=== PATIENT | female | born 1995 | race Caucasian/White ===

== ENCOUNTER 2016-09-18 14:36 | Outpatient (CLI) | payer OTHER ==
--- NOTE | 2016-09-18 16:37 | DIAGNOSTIC IMAGING REPORT ---
PROCEDURE: US OB RE-EVALUATION INDICATION: Check dates and anatomy. Follow-up incomplete anatomic survey. TECHNIQUE: Ladd scale, color and spectral Doppler images of the gravid uterus. COMPARISON: Comparison is made to obstetric ultrasound studies on 07/17/2016 and on 05/01/2016 ([facility] 12/11/2016). FINDINGS: There is a viable intrauterine in cephalic position. Placenta is anterior and there is no evidence of previa. Amniotic fluid index is 16.6 cm (60th percentile). Normal cord Doppler ratios (3.0) and cervix length (3.0 cm). Completion of anatomic survey demonstrates fingers, diaphragm, and nose, lips, and facial structures (in extent visualized). The left kidney remains unidentified or atrophic. The right kidney is mildly prominent (4 cm) suggesting compensatory hypertrophy. bladder is present. BPD 7.6 cm 9-30.3 weeks), HC 27.8 cm (30.3 weeks), AC 24.3 cm (28.5 weeks), FL 5.4 cm (28.5 weeks). IMPRESSION: 1. Viable intrauterine with composite menstrual age of 29.3 weeks (plus or minus 2.5 weeks). [facility] based on today's study is 12/01/2016. When compared to prior studies ([facility] 12/11/2016), growth is advanced by approximate 10 days, but within normal limits. 2. Completion of anatomic survey now demonstrates normal structures that were not identified on prior study (fingers, diaphragm, nose and facial structures). 3. left kidney is still not identified on today's study, and there is evidence of compensatory hypertrophy of the right kidney. 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 4. In view the above changes early follow-up obstetric ultrasound in 4-6 weeks is recommended to evaluate growth and assess kidneys. 5. Findings discussed with Dr. Hoang.
== END 2016-09-18 23:00 ==
LOC: US SRH 14:36
DX: O35.8XX0 Maternal care for other (suspected) fetal abnormality and damage, not applicable or unspecified (principal); Z3A.29 29 weeks gestation of pregnancy

== ENCOUNTER 2016-09-21 17:42 | Outpatient (CLI) | payer OTHER | END 2016-09-21 19:00 | disposition home or self-care (01) | LOC: OBC SRH 17:42 → OB SRH 17:44 | PROC: 4A0HXCZ Measurement of Products of Conception, Cardiac Rate, External Approach (ICD-10-PCS; principal; 2016-09-21) | DX: O36.8130 Decreased fetal movements, third trimester, not applicable or unspecified (principal); Z3A.28 28 weeks gestation of pregnancy ==

== ENCOUNTER 2016-10-09 19:24 | Outpatient (CLI) | payer OTHER | END 2016-10-09 21:30 | disposition home or self-care (01) | LOC: OB SRH 19:24 → OBC SRH 19:24 → OB SRH 19:25 → OBC SRH 21:30 | PROC: 4A0HXCZ Measurement of Products of Conception, Cardiac Rate, External Approach (ICD-10-PCS; principal; 2016-10-09) | DX: O47.03 False labor before 37 completed weeks of gestation, third trimester (principal); Z3A.31 31 weeks gestation of pregnancy ==

== ENCOUNTER 2016-10-23 13:14 | Outpatient (CLI) | payer OTHER | END 2016-10-23 14:10 | disposition home or self-care (01) | LOC: NST SRH 13:14 → OB SRH 13:19 → NST SRH 14:10 | PROC: 4A0HXCZ Measurement of Products of Conception, Cardiac Rate, External Approach (ICD-10-PCS; principal; 2016-10-23) | DX: O47.03 False labor before 37 completed weeks of gestation, third trimester (principal); Z3A.33 33 weeks gestation of pregnancy ==

== ENCOUNTER 2016-10-30 15:53 | Outpatient (CLI) | payer OTHER | END 2016-10-30 17:00 | disposition home or self-care (01) | LOC: NST SRH 15:53 → OB SRH 15:55 → NST SRH 17:00 | PROC: 4A0HXCZ Measurement of Products of Conception, Cardiac Rate, External Approach (ICD-10-PCS; principal; 2016-10-30) | DX: O35.8XX0 Maternal care for other (suspected) fetal abnormality and damage, not applicable or unspecified (principal); Z3A.34 34 weeks gestation of pregnancy ==

== ENCOUNTER 2016-11-06 12:07 | Outpatient (CLI) | payer OTHER | END 2016-11-06 13:30 | disposition home or self-care (01) | LOC: NST SRH 12:07 → OB SRH 12:10 → NST SRH 13:30 | PROC: 4A0HXCZ Measurement of Products of Conception, Cardiac Rate, External Approach (ICD-10-PCS; principal; 2016-11-06) | DX: O35.8XX0 Maternal care for other (suspected) fetal abnormality and damage, not applicable or unspecified (principal); Z3A.35 35 weeks gestation of pregnancy ==

== ENCOUNTER 2016-11-13 15:34 | Outpatient (CLI) | payer OTHER ==
--- NOTE | 2016-11-13 21:50 | DIAGNOSTIC IMAGING REPORT ---
PROCEDURE: US OB RE-EVALUATION INDICATION: BIG FOR SIZE AND DATES TECHNIQUE: Ladd scale, color and spectral Doppler images of the gravid uterus. COMPARISON: OB ultrasound 09/18/2016 and 07/17/2016. FINDINGS: Single intrauterine with vertex presentation, anterior placenta without previa and heart rate 152 bpm. LB measures 13 cm, 50th percentile. Cervix is not well visualized. There is new mild to moderate right hydronephrosis versus extrarenal pelvis. Left kidney not visualized. BPD 9.3 cm, 37 weeks 4 days; head circumference 33.2 cm, 98-hvuk-2-day; abdominal circumference 33.4 cm, 37 weeks 2 days; femur length 7.2 cm, 36 weeks 6 days. Composite gestational age of 37 weeks 3 days with [facility] 12/01/2016. Estimated weight 3164 g plus/minus 475 g (6.98 pounds). IMPRESSION: 1. Single live intrauterine 37 weeks 3 days 2. [facility] 12/01/2016, normal interval growth 3. 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 New mild to moderate right hydronephrosis versus extrarenal pelvis
--- NOTE | 2016-11-13 21:50 | DIAGNOSTIC IMAGING REPORT ---
PROCEDURE: US OB RE-EVALUATION INDICATION: BIG FOR SIZE AND DATES TECHNIQUE: Ladd scale, color and spectral Doppler images of the gravid uterus. COMPARISON: OB ultrasound 09/18/2016 and 07/17/2016. FINDINGS: Single intrauterine with vertex presentation, anterior placenta without previa and heart rate 152 bpm. LB measures 13 cm, 50th percentile. Cervix is not well visualized. There is new mild to moderate right hydronephrosis versus extrarenal pelvis. Left kidney not visualized. BPD 9.3 cm, 37 weeks 4 days; head circumference 33.2 cm, 12-suuq-5-day; abdominal circumference 33.4 cm, 37 weeks 2 days; femur length 7.2 cm, 36 weeks 6 days. Composite gestational age of 37 weeks 3 days with [facility] 12/01/2016. Estimated weight 3164 g plus/minus 475 g (6.98 pounds). IMPRESSION: 1. Single live intrauterine 37 weeks 3 days 2. [facility] 12/01/2016, normal interval growth 3. 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 New mild to moderate right hydronephrosis versus extrarenal pelvis
== END 2016-11-13 16:10 | disposition home or self-care (01) ==
LOC: NST SRH 15:34 → OB SRH 15:34 → NST SRH 16:10
PROC: 4A0HXCZ Measurement of Products of Conception, Cardiac Rate, External Approach (ICD-10-PCS; principal; 2016-11-13)
DX: O35.8XX0 Maternal care for other (suspected) fetal abnormality and damage, not applicable or unspecified (principal); Z3A.36 36 weeks gestation of pregnancy

== ENCOUNTER 2016-11-16 10:33 | Outpatient (CLI) | payer OTHER | END 2016-11-16 12:20 | disposition home or self-care (01) | LOC: OBC SRH 10:33 → OB SRH 10:38 → OBC SRH 12:20 | PROC: 4A0HXCZ Measurement of Products of Conception, Cardiac Rate, External Approach (ICD-10-PCS; principal; 2016-11-16) | DX: O47.03 False labor before 37 completed weeks of gestation, third trimester (principal); Z3A.36 36 weeks gestation of pregnancy ==

== ENCOUNTER 2016-11-20 14:31 | Outpatient (CLI) | payer OTHER | END 2016-11-20 15:30 | disposition home or self-care (01) | LOC: NST SRH 14:31 → OB SRH 14:33 → NST SRH 15:30 | PROC: 4A0HXCZ Measurement of Products of Conception, Cardiac Rate, External Approach (ICD-10-PCS; principal; 2016-11-20) | DX: O35.8XX0 Maternal care for other (suspected) fetal abnormality and damage, not applicable or unspecified (principal); Z3A.37 37 weeks gestation of pregnancy ==